=== PATIENT | female | born 1995 | race Caucasian/White ===

== ENCOUNTER 2019-04-01 04:19 | Emergency (ER) | payer OTHER ==
[~2019-04-01] VITALS: Ht 172.7 cm; Wt 101.8 kg
[2019-04-01] MEDS ORDERED: ACETAMINOPHEN 500 MG TABLET ONE (04:56)
[2019-04-01] MEDS ORDERED: ACETAMINOPHEN 500 MG TABLET PO ONE (05:00)
[2019-04-01] MEDS ORDERED: ONDANSETRON ODT 4 MG PO ONE (05:00)
[2019-04-01] MEDS ORDERED: ONDANSETRON ODT 4 MG ONE (05:02)
[2019-04-01 05:05] LABS: RAPID INFLUENZA A Negative (Negative); RAPID INFLUENZA B POSITIVE (Negative)
[2019-04-01 05:21] VITALS: BP 122/70
== END 2019-04-01 05:40 | disposition home or self-care (01) ==
LOC: ED 05:30
DX: J10.1 Influenza due to other identified influenza virus with other respiratory manifestations (principal); J02.9 Acute pharyngitis, unspecified; Z88.0 Allergy status to penicillin; Z88.1 Allergy status to other antibiotic agents
CPT/HCPCS: 71046; 87081; 87400; 87880; 99284; Q0162

== ENCOUNTER 2020-11-09 04:57 | Outpatient (CLI) | payer OTHER ==
[~2020-11-09] VITALS: Ht 172.7 cm; Wt 109.1 kg
[2020-11-09 05:34] LABS: MICROSCOPIC INDICATED
[2020-11-09] MEDS ORDERED: SIMETHICONE 80 MG CHEW TAB ONE (05:48)
[2020-11-09] MEDS ORDERED: SIMETHICONE 80 MG CHEW TAB PO PRN (06:00)
[2020-11-09] MEDS ORDERED: BISACODYL 10 MG SUPP PR PRN (06:00)
[2020-11-09 06:21] VITALS: BP 131/75
== END 2020-11-09 07:00 | disposition home or self-care (01) ==
LOC: LDOP 04:57
PROVIDERS: ATTEND Obstetrics & Gynecology
DX: O26.892 Other specified pregnancy related conditions, second trimester (principal); R10.9 Unspecified abdominal pain; Z3A.24 24 weeks gestation of pregnancy
CPT/HCPCS: 81001; 87086; 99201; 99211; G0463

== ENCOUNTER 2021-02-09 03:41 | Outpatient (CLI) | payer OTHER ==
[~2021-02-09] VITALS: Ht 172.7 cm; Wt 122.2 kg
[2021-02-09 15:54] VITALS: BP 140/85
[2021-02-09 16:10] LABS: MICROSCOPIC NOT IND
[2021-02-09 16:36] LABS: BASOPHILS % (AUTO) 0 % (0-1); EOSINOPHILS % (AUTO) 0 % (1-7); LYMPHOCYTES % (AUTO) 12 % (22-44); MONOCYTES % (AUTO) 7 % (2-9); NEUTROPHILS % (AUTO) 80 % (42-75); PLATELET COUNT 398 x10^3/uL (130-400)
[2021-02-09 16:49] LABS: CHLORIDE 106 mmol/L (98-107)
[2021-02-09 16:55] LABS: ALANINE AMINOTRANSFERASE 16 U/L (12-78); ALBUMIN 2.4 g/dL (3.4-5.0); ALKALINE PHOSPHATASE 214 U/L (45-117); ANION GAP 11 mmol/L (5-15); BILIRUBIN,TOTAL 0.2 mg/dL (0.2-1.0); CALCIUM 8.4 mg/dL (8.5-10.1); CREATININE 0.54 mg/dL (0.55-1.02); TOTAL PROTEIN 6.6 g/dL (6.4-8.2)
[2021-02-09 16:56] LABS: BILIRUBIN, DIRECT < 0.1 mg/dL (0.1-0.2)
== END 2021-02-09 17:51 | disposition home or self-care (01) ==
LOC: LDOP 03:41
PROVIDERS: ATTEND Obstetrics & Gynecology
DX: O16.3 Unspecified maternal hypertension, third trimester (principal); Z3A.37 37 weeks gestation of pregnancy
CPT/HCPCS: 36415; 59025; 80053; 81003; 82248; 82570; 84156; 84550; 85025

== ENCOUNTER 2021-02-16 15:36 | Outpatient (CLI) | payer OTHER ==
[~2021-02-16] VITALS: Ht 172.7 cm; Wt 124.0 kg
[2021-02-16 15:55] LABS: MICROSCOPIC NOT IND
[2021-02-16 16:05] LABS: CREATININE,URINE RANDOM 44.6 mg/dL
[2021-02-16 16:13] LABS: BASOPHILS % (AUTO) 1 % (0-1); EOSINOPHILS % (AUTO) 0 % (1-7); LYMPHOCYTES % (AUTO) 11 % (22-44); MEAN CORPUSCULAR HEMOGLOBIN 29.2 pg (27.0-34.8); MEAN CORPUSCULAR HGB CONC 33.5 g/dL (32.4-35.8); MEAN PLATELET VOLUME 8.2 fL (7.4-10.4); MONOCYTES % (AUTO) 7 % (2-9); NEUTROPHILS % (AUTO) 82 % (42-75); PLATELET COUNT 391 x10^3/uL (130-400); RED BLOOD COUNT 4.29 x10^6/uL (3.82-5.3); RED CELL DISTRIBUTION WIDTH 14.4 % (9.6-15.2)
[2021-02-16 16:22] LABS: ALANINE AMINOTRANSFERASE 22 U/L (12-78); ALBUMIN 2.4 g/dL (3.4-5.0); ANION GAP 8 mmol/L (5-15); CALCIUM 8.3 mg/dL (8.5-10.1); CHLORIDE 106 mmol/L (98-107); CREATININE 0.56 mg/dL (0.55-1.02)
[2021-02-16 16:25] LABS: ALKALINE PHOSPHATASE 236 U/L (45-117); BILIRUBIN,TOTAL 0.3 mg/dL (0.2-1.0); TOTAL PROTEIN 6.7 g/dL (6.4-8.2)
== END 2021-02-16 18:00 | disposition home or self-care (01) ==
LOC: LDOP 15:36
PROVIDERS: ATTEND Obstetrics & Gynecology
DX: O29.43 Spinal and epidural anesthesia induced headache during pregnancy, third trimester (principal); O26.893 Other specified pregnancy related conditions, third trimester; H53.8 Other visual disturbances; R51.9 Headache, unspecified; Z3A.38 38 weeks gestation of pregnancy
CPT/HCPCS: 36415; 59025; 76815; 80053; 81003; 82570; 84156; 84550; 85025

== ENCOUNTER 2021-02-20 06:06 | Inpatient (IN) | payer OTHER ==
[~2021-02-20] VITALS: Ht 172.7 cm; Wt 123.6 kg
[2021-02-20] MEDS ORDERED: OXYTOCIN 30U/ 0.9% NaCL 500ML 500 ML ONE (06:08)
[2021-02-20] MEDS ORDERED: MISOPROSTOL 200 MCG TABLET ONE (06:08)
[2021-02-20] MEDS ORDERED: NEWBORN KIT ONE (06:08)
[2021-02-20] MEDS ORDERED: LIDOCAINE 1%, 20ML ONE (06:08)
[2021-02-20] MEDS: LACTATED RINGERS 1,000 ML IV SCH ×2 (06:35→13:41)
[2021-02-20] MEDS ORDERED: OXYTOCIN 30U/ 0.9% NaCL 500ML 500 ML IV ONE (07:00)
[2021-02-20] MEDS ORDERED: D5%-LACTATED RINGERS 1,000 ML IV SCH (07:00)
[2021-02-20] MEDS ORDERED: TERBUTALINE 1 MG/ML, 1ML IVPush PRN (07:00)
[2021-02-20] MEDS ORDERED: MISOPROSTOL 25 MCG TABLET VG PRN (07:00)
[2021-02-20] MEDS ORDERED: ONDANSETRON 2MG/ML, 2ML IVPush PRN (07:00)
[2021-02-20] MEDS ORDERED: CALCIUM CARBONATE 500 MG TAB.CHEW PO PRN (07:00)
[2021-02-20] MEDS ORDERED: FENTANYL PF 100 MCG/2ML IVPush PRN (07:00)
[2021-02-20] MEDS ORDERED: OXYTOCIN 30U/ 0.9% NaCL 500ML 500 ML IV PRN (07:00)
[2021-02-20] MEDS ORDERED: FENTANYL PF 100 MCG/2ML IV PRN (07:00)
[2021-02-20] MEDS ORDERED: PLEASE ENTER HEIGHT AND WEIGHT MC SCH (07:00)
[2021-02-20] MEDS ORDERED: TERBUTALINE 1 MG/ML, 1ML SQ PRN (07:00)
[2021-02-20 07:28] LABS: BASOPHILS % (AUTO) 1 % (0-1); EOSINOPHILS % (AUTO) 1 % (1-7); LYMPHOCYTES % (AUTO) 15 % (22-44); MEAN CORPUSCULAR HEMOGLOBIN 29.1 pg (27.0-34.8); MEAN CORPUSCULAR HGB CONC 33.6 g/dL (32.4-35.8); MEAN PLATELET VOLUME 7.9 fL (7.4-10.4); MONOCYTES % (AUTO) 8 % (2-9); NEUTROPHILS % (AUTO) 75 % (42-75); PLATELET COUNT 359 x10^3/uL (130-400); RED BLOOD COUNT 3.95 x10^6/uL (3.82-5.3); RED CELL DISTRIBUTION WIDTH 14.3 % (9.6-15.2)
[2021-02-20 07:46] LABS: ALANINE AMINOTRANSFERASE 22 U/L (12-78); ALBUMIN 2.1 g/dL (3.4-5.0); ANION GAP 8 mmol/L (5-15); CALCIUM 8.2 mg/dL (8.5-10.1); CHLORIDE 108 mmol/L (98-107); CREATININE 0.47 mg/dL (0.55-1.02)
[2021-02-20 07:50] LABS: MICROSCOPIC NOT IND
[2021-02-20 07:51] LABS: ALKALINE PHOSPHATASE 227 U/L (45-117); BILIRUBIN,TOTAL 0.2 mg/dL (0.2-1.0); TOTAL PROTEIN 6.2 g/dL (6.4-8.2)
[2021-02-20 19:15] VITALS: BP 157/91
[2021-02-20] MEDS ORDERED: FENTANYL/BUPIV./NS/PF 250 ML EPIDCONT ONE (21:10)
[2021-02-20] MEDS ORDERED: BUPIVACAINE 0.25% ONE (21:10)
[2021-02-20] MEDS ORDERED: EPHEDRINE 50 MG/ML, 1ML IVPush PRN (22:00)
[2021-02-20] MEDS ORDERED: LACTATED RINGERS 1,000 ML IV SCH (22:00)
[2021-02-20] MEDS ORDERED: FENTANYL/BUPIV./NS/PF 250 ML EPIDCONT SCH (22:00)
[2021-02-20] MEDS ORDERED: LACTATED RINGERS 1,000 ML IVBOLUS PRN (22:00)
[2021-02-20] MEDS ORDERED: LABETALOL 5MG/ML, 20ML ONE (22:06)
[2021-02-20] MEDS ORDERED: LABETALOL 5MG/ML, 20ML IVPush ONE ×2 (22:30→23:00)
[2021-02-20] MEDS ORDERED: hydrALAzine 20 MG/ML, 1ML ONE (23:12)
[2021-02-20] MEDS ORDERED: hydrALAzine 20 MG/ML, 1ML IV ONE (23:30)
[2021-02-20] MEDS ORDERED: MAGNESIUM SULF. PMX 20GM/500ML 500 ML IV ONE (23:49)
[2021-02-20] MEDS ORDERED: MAGNESIUM SULFATE PMX 4GM/100M 100 ML ONE (23:49)
[2021-02-21] MEDS ORDERED: MAGNESIUM SULFATE PMX 4GM/100M 100 ML IVPB ONE
[2021-02-21] MEDS ORDERED: hydrALAzine 20 MG/ML, 1ML IV ONE
[2021-02-21 00:07] LABS: MEAN CORPUSCULAR HEMOGLOBIN 29.2 pg (27.0-34.8); MEAN CORPUSCULAR HGB CONC 33.4 g/dL (32.4-35.8); PLATELET COUNT 372 x10^3/uL (130-400); RED BLOOD COUNT 4.13 x10^6/uL (3.82-5.3); RED CELL DISTRIBUTION WIDTH 14.4 % (9.6-15.2)
[2021-02-21] MEDS ORDERED: BUPIVACAINE 0.25% ONE ×3 (00:10→04:18)
[2021-02-21 00:25] LABS: ALANINE AMINOTRANSFERASE 21 U/L (12-78); ALBUMIN 2.1 g/dL (3.4-5.0); ANION GAP 11 mmol/L (5-15); CALCIUM 8.2 mg/dL (8.5-10.1); CHLORIDE 104 mmol/L (98-107); CREATININE 0.54 mg/dL (0.55-1.02)
[2021-02-21 00:27] LABS: ALKALINE PHOSPHATASE 241 U/L (45-117); BILIRUBIN,TOTAL 0.3 mg/dL (0.2-1.0); TOTAL PROTEIN 6.4 g/dL (6.4-8.2)
[2021-02-21 00:35] LABS: BAND#(MANUAL) 1.53 x10^3/uL; BANDS%(MANUAL) 8 % (0-7); LYMPH#(MANUAL) 1.72 x10^3/uL (1-3.4); LYMPHS% (MANUAL) 9 % (22-44); MONOS#(MANUAL) 1.72 x10^3/uL (0.3-2.7); MONOS% (MANUAL) 9 % (2-9); POLYCHROMASIA 1+; SEG#(MANUAL) 14.13 x10^3/uL (1.8-6.8); SEGS% (MANUAL) 74 % (42-75)
[2021-02-21 00:36] LABS: <PLATELET ESTIMATE> ADEQUATE; <PLT MORPHOLOGY> NORMAL PLT MORPH; ANISOCYTOSIS 1+; PMNS WITH VACUOLES 1+
[2021-02-21 00:39] LABS: BILIRUBIN, DIRECT < 0.1 mg/dL (0.1-0.2)
[2021-02-21 00:41] LABS: MICROSCOPIC NOT IND
[2021-02-21] MEDS ORDERED: LIDOCAINE/MPF 2%-EPI 1:200K, 20 ML ONE (00:45)
[2021-02-21 00:55] LABS: CREATININE,URINE RANDOM 48.6 mg/dL
[2021-02-21] MEDS ORDERED: MISOPROSTOL 200 MCG TABLET PR ONE (07:00)
[2021-02-21] MEDS ORDERED: SIMETHICONE 80 MG CHEW TAB PO PRN (07:30)
[2021-02-21] MEDS: OXYTOCIN 30U/ 0.9% NaCL 500ML 500 ML IV SCH ×2 (07:30→17:30)
[2021-02-21] MEDS ORDERED: OXYcodone IR 5MG TABLET PO PRN (07:30)
[2021-02-21] MEDS ORDERED: MISOPROSTOL 200 MCG TABLET PR PRN (07:30)
[2021-02-21] MEDS ORDERED: CARBOPROST TROMETHAMINE 250 MCG/ML, 1ML IM PRN (07:30)
[2021-02-21] MEDS ORDERED: ACETAMINOPHEN 325 MG TABLET PO PRN (07:30)
[2021-02-21] MEDS ORDERED: ONDANSETRON 2MG/ML, 2ML IV PRN (07:30)
[2021-02-21] MEDS ORDERED: DEXTROSE 47%, 15GM GEL ONE (07:57)
[2021-02-21] MEDS: PRENATAL VIT/IRON/FA 1 EACH TABLET PO SCH (09:00)
[2021-02-21] MEDS: MAGNESIUM SULF. PMX 20GM/500ML 500 ML IV SCH ×2 (11:50)
[2021-02-21 13:19] LABS: BASOPHILS % (AUTO) 0 % (0-1); EOSINOPHILS % (AUTO) 0 % (1-7); LYMPHOCYTES % (AUTO) 7 % (22-44); MEAN CORPUSCULAR HGB CONC 33.1 g/dL (32.4-35.8); MEAN PLATELET VOLUME 8.1 fL (7.4-10.4); MONOCYTES % (AUTO) 5 % (2-9); NEUTROPHILS % (AUTO) 88 % (42-75); PLATELET COUNT 369 x10^3/uL (130-400); RED BLOOD COUNT 3.86 x10^6/uL (3.82-5.3); RED CELL DISTRIBUTION WIDTH 14.9 % (9.6-15.2)
[2021-02-21] MEDS ORDERED: LACTATED RINGERS 1,000 ML IV SCH (14:30)
[2021-02-21] MEDS: LACTATED RINGERS 1,000 ML IV SCH (14:30)
[2021-02-21] MEDS: IBUPROFEN 600 MG TABLET PO PRN (17:30)
[2021-02-21 18:32] VITALS: BP 122/83
[2021-02-21] MEDS: OXYcodone/APAP 5/325MG TABLET PO PRN (20:23)
[2021-02-21] MEDS: DOCUSATE 100 MG CAPSULE PO PRN (20:23)
[2021-02-21 23:00] VITALS: BP 115/72
[2021-02-22] MEDS: IBUPROFEN 600 MG TABLET PO PRN ×4 (00:10→19:47)
[2021-02-22] MEDS: OXYcodone/APAP 5/325MG TABLET PO PRN ×4 (00:11→19:48)
[2021-02-22] MEDS: LACTATED RINGERS 1,000 ML IV SCH ×2 (00:30→10:22)
[2021-02-22] MEDS: OXYTOCIN 30U/ 0.9% NaCL 500ML 500 ML IV SCH ×2 (03:30→10:23)
[2021-02-22 03:45] VITALS: BP 124/79
[2021-02-22 08:00] VITALS: BP 127/78
[2021-02-22] MEDS: PRENATAL VIT/IRON/FA 1 EACH TABLET PO SCH (09:25)
[2021-02-22] MEDS: DOCUSATE 100 MG CAPSULE PO PRN ×2 (09:25→19:48)
[2021-02-22 21:00] VITALS: BP 135/66
[2021-02-23] MEDS: IBUPROFEN 600 MG TABLET PO PRN ×2 (01:53→07:57)
[2021-02-23] MEDS: OXYcodone/APAP 5/325MG TABLET PO PRN ×2 (01:55→07:57)
[2021-02-23 05:45] VITALS: BP 116/66
[2021-02-23] MEDS: PRENATAL VIT/IRON/FA 1 EACH TABLET PO SCH (07:57)
[2021-02-23] MEDS: DOCUSATE 100 MG CAPSULE PO PRN (07:57)
[2021-02-23] MEDS ORDERED: MEASLES,MUMPS&RUBELLA VACC/PF 0.5 ML SQ-VACC ONE ×2 (09:13→09:30)
[2021-02-23] MEDS ORDERED: IBUP-1222 PO (09:34)
[2021-02-23] MEDS ORDERED: OXYC1TAB12 PO (09:34)
[2021-02-23] MEDS ORDERED: DOCU-131 PO (09:34)
== END 2021-02-23 10:37 | disposition home or self-care (01) | DRG 807 ==
LOC: LDIP 06:06 → 2NW 02-21 11:30 → 2NE 02-21 11:31 → 2NW 02-21 17:56
PROVIDERS: ADMIT Obstetrics & Gynecology; ATTEND Obstetrics & Gynecology
PROC: 10E0XZZ Delivery of Products of Conception, External Approach (ICD-10-PCS; principal; 2021-02-21)
PROC: 0KQM0ZZ Repair Perineum Muscle, Open Approach (ICD-10-PCS; 2021-02-21)
PROC: 10907ZC Drainage of Amniotic Fluid, Therapeutic from Products of Conception, Via Natural or Artificial Opening (ICD-10-PCS; 2021-02-21)
PROC: 10H07YZ Insertion of Other Device into Products of Conception, Via Natural or Artificial Opening (ICD-10-PCS; 2021-02-21)
PROC: 3E0R3BZ Introduction of Anesthetic Agent into Spinal Canal, Percutaneous Approach (ICD-10-PCS; 2021-02-21)
PROC: 00HU33Z Insertion of Infusion Device into Spinal Canal, Percutaneous Approach (ICD-10-PCS; 2021-02-21)
PROC: 3E0234Z Introduction of Serum, Toxoid and Vaccine into Muscle, Percutaneous Approach (ICD-10-PCS; 2021-02-23)
DX: O13.4 Gestational [pregnancy-induced] hypertension without significant proteinuria, complicating childbirth (principal); Z37.0 Single live birth; E66.01 Morbid (severe) obesity due to excess calories; O99.214 Obesity complicating childbirth; Z20.822 Contact with and (suspected) exposure to COVID-19; O70.1 Second degree perineal laceration during delivery; Z23 Encounter for immunization; Z3A.38 38 weeks gestation of pregnancy; Z88.1 Allergy status to other antibiotic agents
CPT/HCPCS: 36415; 80053; 81003; 82248; 82570; 83735; 84156; 84550; 85025; 86592; 86850; 86870; 86900; 86902; 86922; 86923; 87635; 90707; G0378; J2405; J0360; J2590; J3010; J3475; J7120